=== PATIENT | female | born 1965 | race Caucasian/White ===

== ENCOUNTER 2022-06-06 08:06 | Outpatient (CLI) | payer OTHER, SELFPAY ==
--- OUTSIDE RECORDS SUMMARY | 2022-05-05 09:07 | XMS_ITS | Continuity of Care Document ---
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 Cough Active History of tubal ligation July 05, 2012 Active H/O bilateral oophorectomy July 05, 2012 Active History of herniorrhaphy Active Medications Medication Status Dose Units Route Directions Qty Days Start End Ins tructions Date Date Black Cohash Active Daily Multivitamins Active 1 TAB PO Daily 100 (Multivitamin /Minerals) TAB Ciprofloxacin Disconti 1 TABLET PO Twice A Day 8 March Hcl nued r 2018 3:30pm 8:12am Ciprofloxacin Disconti 1 TABLET PO Twice A Day 6 e Decemb Hcl nued r 3rd, er 2018 6th, 2:43pm 2018 3:30pm Ciprofloxacin Disconti 500 MG PO Twice A Day 14 mbe J aishwarya Hcl (Cipro) nued r 500 Mg TAB 2017, 12:53pm 2018 9:11am Ciprofloxacin Disconti 500 MG PO Twice A Day 14 D ecemb Hcl nued r 22, er 2015 8th, 10:04am 2015 10:12a m Diphtheria/Te Disconti 0.5 ML IM Once June tanus/Acell nued , , Pertussis 2014 2014 (Adacel) 0.5 11:23am 11:56a Ml INJ m Fluconazole Disconti 150 MG PO Once 1 Decembe Decemb (Diflucan) nued r , er 150 Mg TAB 2015, 10:27am 2016 11:00a m Omeprazole Disconti 20 MG PO Daily Mayuar nued , y 2017, 8:32am 2018 9:22am Omeprazole Disconti 20 MG PO Daily 90 May nued r , , 2016 2017 11:18am 8:32am Omeprazole Disconti 20 MG PO Daily 90 April nued , er 2016, 11:51am 2016 11:18a m Omeprazole Disconti 20 MG PO Daily 90 April nued r , , 2015 2016 10:25am 11:51a m Omeprazole Disconti 20 MG PO Daily June nued , er 2016 , 10:24am 2015 10:25a m Omeprazole Disconti 20 MG PO Daily March Pt wi ll be nued , , due for 2015 2015 physical in 7:58am 10:24a [place] m Omeprazole Disconti 20 MG PO Daily March nued y 2015 12:52pm 7:58am Omeprazole Disconti 20 MG PO Daily ua nued r , ry 2014, 10:15am 2015 12:52p m Omeprazole Disconti 20 MG PO Daily August nued , er 2014, 10:52am 2014 10:15a m Omeprazole Disconti 20 MG PO Daily nued er r , , 2014 2014 10:25am 10:52a m Omeprazole Disconti 20 MG PO Daily June nued , noa 2014, 11:44am 2014 10:25a m Phenazopyridi Disconti 200 MG PO Three Times 10 Decembe J aishwarya ne Hcl nued A Day as r , y (Pyridium) needed 2018 , 200 Mg TAB 12:53pm 2018 9:22am Phenazopyridi Disconti 100 MG PO Three Times 10 Novembe D ecemb ne Hcl nued A Day as r 5th, er (Pyridium) needed 2017, 100 Mg TAB 2:53pm 2017 12:26p m Sulfamethoxaz Disconti 1 TAB PO Twice A Day 6 3 Novembe D ecemb ole-Trimethop nued r 5th, er rim (Bactrim 2017, Ds) 800 2:53pm 2018 Mg/160 Mg TAB 12:26p m Valacyclovir Disconti 500 MG PO As Needed Decemb Hcl (Valtrex) nued er 500 Mg TAB 2017 12:26p m Varenicline Disconti 1 MG PO Twice A Day 05 April Augus t (Chantix nued , , Continuing 2006 2011 Pack) 1 Mg 10:45am 10:54a JORGE m Varenicline Disconti 1 MG PO Twice A Day February (Chantix nued , 25th, Continuing 2006 2006 Pack) 1 Mg 1:14pm 1:20pm JORGE Varenicline Disconti 0.5 - MG PO As Directed January TAKE (Chantix nued 1 , , ACCORDING T O Starter Pack) 2006 2006 PACKAG E 0.5 Mg/1 Mg 9:28am 11:39a DIRECT IONS TAB m Venlafaxine Disconti 37.5 MG PO Daily November Ple ase schedule appointment before additional refills are Hcl (Effexor nued , , authori zed. Xr) 37.5 Mg 2019 2020 CAPCR 2:24pm 8:12am Venlafaxine Disconti 37.5 MG PO Daily August Du e for Hcl (Effexor nued , y annual exam Xr) 37.5 Mg 2018, in Novua ry CAPCR 8:26am 2019 2:24pm Venlafaxine Disconti 37.5 MG PO Daily Novemberobe Hcl (Effexor nued , r Xr) 37.5 Mg 2018, CAPCR 11:222018 8:26am Venlafaxine Disconti 37.5 MG PO Daily 90 mbr Hcl (Effexor nued r , y Xr) 37.5 Mg 2016, CAPCR 11:182018 11:22a m Venlafaxine Disconti 37.5 MG PO Daily 90 Februar Decemb Hcl (Effexor nued y 27th, er Xr) 37.5 Mg 2016, CAPCR 10:20am 2016 11:18a m Venlafaxine Disconti 37.5 MG PO Daily 90 Decembe Februa Hcl (Effexor nued r 8th, ry Xr) 37.5 Mg 2015, CAPCR 10:25am 2016 10:20a m Venlafaxine Disconti 37.5 MG PO Daily 90 Novembe Decemb Hcl (Effexor nued r 28th, er Xr) 37.5 Mg 2016 06, CAPCR 4:17pm 2015 10:25a m Venlafaxine Disconti 37.5 MG PO Daily 90 Novembe Novemb Hcl (Effexor nued r 23, er Xr) 37.5 Mg 2014, CAPCR 10:16am 2015 4:17pm Venlafaxine Disconti 37.5 MG PO Daily 90 Novembe Novemb Hcl (Effexor nued r 18, er Xr) 37.5 Mg 2014, CAPCR 2:36pm 2014 10:16a m Venlafaxine Disconti 37.5 MG PO Daily 90 June Novemb Hcl (Effexor nued , er Xr) 37.5 Mg 2014, CAPCR 11:44am 2014 2:36pm Immunizations Immunization Event Date Not Given Dose Director Of Home Economics Lot [place] Reason Number Number Informatio n Statement (VIS) Deta il Influenza September [id number] Tdap June 28 SANOFI [id number] (adolescent/adul 2014 t) Advance Directives Advance Directive Response Recorded Date/Time Does Pt have Health Care No July 03 1:42pm Directive? Has patient completed a No April 01, 2021 8 :38am Health Care Directive? Insurance Providers Guarantor Brit Meyer Address [address] [facility] [address] Contact Info. Home Phone: Payer Policy Id Coverage Id Subscriber's Subscriber Effective Expi ration Name Id Date Date [place] [id number] Jimbo Meyer [facility] Plan of Treatment Future Tests Future scheduled test information is unavailable Pending Tests Pending diagnostic test information is unavailable Future Visits Future appointment information is unavailable Referrals to Other Providers Referral information is unavailable Future Procedures Procedure Name Scheduled Date JACK Bilat Mammo Scrn Future Medications Future medication information is unavailable Patient Instructions Patient instructions are unavailable
--- NOTE | 2022-06-06 08:15 | CRLHL7_ITS ---
For Patients: As a result of the Century Cures Act, medical imaging exams and procedure reports are released immediately into your electronic medical record. You may view this report before your referring provider. If you have questions, please contact your health care provider. BILATERAL MAMMOGRAM WITH COMPUTER-AIDED DETECTION AND TOMOSYNTHESIS TECHNIQUE: CC and MLO views were obtained. These mammographic images have been obtained using full-field digital technique. These mammographic images were interpreted with the benefit of computer-aided detection. Breast Tomosynthesis was used in this interpretation. COMPARISON FILM: 10/16/20, 11/18/18, 11/03/16 FINDINGS: There are scattered areas of fibroglandular density IMPRESSION: There is no radiographic evidence for malignancy. ASSESSMENT: BI-RADS Category 1: Negative RECOMMENDATION: Routine screening mammogram in 1 year. A lay language report of this examination will be provided to the patient. Tiesha Boucher M.D. Diagnostic/Breast Radiologist [email or web address] ULISES/Dictated by: Tiesha Boucher MD @ 06/06/2022 4:39:00 PM (Electronically Signed)
== END 2022-06-06 08:07 | disposition home or self-care (01) ==
LOC: MAMMO 08:08
PROVIDERS: Visit Provider Physician Assistant
DX: Z12.31 Encounter for screening mammogram for malignant neoplasm of breast (principal)
CPT/HCPCS: 77063; 77067

== ENCOUNTER 2023-06-25 12:43 | Outpatient (CLI) | payer OTHER, SELFPAY ==
--- NOTE | 2023-06-25 13:00 | CRLHL7_ITS ---
For Patients: As a result of the Century Cures Act, medical imaging exams and procedure reports are released immediately into your electronic medical record. You may view this report before your referring provider. If you have questions, please contact your health care provider. BILATERAL SCREENING MAMMOGRAM WITH COMPUTER-AIDED DETECTION AND TOMOSYNTHESIS TECHNIQUE: CC and MLO views were obtained. These mammographic images have been obtained using full-field digital technique. These mammographic images were interpreted with the benefit of computer-aided detection. Breast Tomosynthesis was used in this interpretation. COMPARISON FILM: 06/06/22, 10/16/20, 11/18/18. FINDINGS: The breasts are heterogeneously dense, which may obscure small masses IMPRESSION: There is no radiographic evidence for malignancy. ASSESSMENT: BI-RADS Category 1: Negative RECOMMENDATION: Routine screening mammogram in 1 year. A lay language report of this examination will be provided to the patient. Alex Gamez M.D. Diagnostic Radiologist [email or web address] ULISES/Dictated by: Alex Gamez MD @ 06/26/2023 8:39:00 AM (Electronically Signed)
== END 2023-06-25 12:44 | disposition home or self-care (01) ==
PROVIDERS: Visit Provider Physician Assistant
DX: Z12.31 Encounter for screening mammogram for malignant neoplasm of breast (principal); R92.2 Inconclusive mammogram
CPT/HCPCS: 77063; 77067

== ENCOUNTER 2023-11-05 11:16 | Emergency (ER) | payer OTHER, SELFPAY ==
[2023-11-05 11:20] VITALS: BP 188/118; PULSE 112; RESP 24; TEMP 36.5; O2SAT 98; BMI 29.8
--- NOTE | 2023-11-05 11:27 | CRLHL7_ITS ---
For Patients: As a result of the Century Cures Act, medical imaging exams and procedure reports are released immediately into your electronic medical record. You may view this report before your referring provider. If you have questions, please contact your health care provider. INDICATION: LEFT FLANK AND ABDOMINAL PAIN TECHNIQUE: CT abdomen and pelvis without contrast. COMPARISON: None. FINDINGS: Lower chest: Minimal linear atelectatic changes in the left lung base; otherwise, unremarkable. Liver: Mild hepatomegaly. No suspicious masses. Well-circumscribed low-density lesion in the right hepatic lobe near the falciform ligament, likely a benign cyst. Gallbladder and bile ducts: S/p cholecystectomy. No biliary dilatation. Pancreas: Unremarkable. No mass or inflammation. Spleen: Upper limits of normal in size. No masses. Adrenal glands: Normal in size. No nodules. Kidneys: Normal in size. No suspicious masses, stones, or hydronephrosis. GI tract: No evidence of bowel obstruction. The appendix is normal. Acute, uncomplicated sigmoid diverticulitis. No pericolonic abscess. Vasculature: Abdominal aorta is normal in caliber. Lymph nodes: No lymphadenopathy. Peritoneum: No free air or significant free fluid. Pelvis: The bladder is decompressed and not well evaluated on this exam. The uterus and bilateral adnexa are within normal limits.. Bones: No acute fracture or malalignment. Degenerative disc disease at L5-S1. No suspicious osseous lesions. IMPRESSION: Acute, uncomplicated sigmoid diverticulitis. Please note that all CT scans at this facility use dose modulation, iterative reconstruction, and/or weight-based dosing when appropriate to reduce radiation dose to as low as reasonably achievable. Dictated by Slava Abrams MD @ 11/05/2023 1:43:46 PM (Electronically Signed)
[2023-11-05 11:37] LABS: Appearance Urine Slightly Cloudy (Clear); Bilirubin Urine Negative (Negative); Blood Urine Trace-intact (Negative); Color Urine Light yellow (Yellow); Glucose Urine Negative (Negative); Ketones Urine Negative (Negative); Leukocyte Esterase Urine Negative (Negative); Nitrite Urine Negative (Negative); Protein Urine Negative (Negative); Urobilinogen Urine 0.2 (0.2-1.0)
--- NOTE | 2023-11-05 11:41 | ED.GENADULT ---
HPI - General Adult General Date Seen: 11/05/23 Chief complaint: Flank Pain Stated complaint: L side/lower abdominal/back pain Time Seen by Provider: 11/05/23 11:21 History of Present Illness HPI narrative: This is a very pleasant generally healthy 58-year-old female accompanied to the ER today by her for evaluation of left flank and abdominal pain. She has a past medical history of gallstones and previous cholecystectomy but is otherwise healthy. She is not currently on any medications. She has no allergies. She was awoken from sleep at about 2:00 a.m. this morning with left low back pain. It came intermittently since then. She it woke her up from some sleep sporadically but she was able to sleep between bouts of pain. It got worse this morning and is now radiating around to the front of her abdomen and down into her lower abdomen. She tried to go to work but was not able to stay there because of worsening bouts of severe pain. She was quite nauseous but did not vomit. Bowel movements have been normal, or if anything feeling a bit constipated this morning. No gross hematuria. She is feeling some urgency to void. For the past few days urination has been normal. No antecedent symptoms. No history of kidney stones. No known back injury. No pain or numbness or weakness down her leg. Related Data Previous Rx's Medication Instructions Recorded amoxicillin 875 mg-potassium 1 tab PO BID #14 tabs 11/05/23 clavulanate 125 mg tablet hydrocodone 5 mg-acetaminophen 325 1 tab PO Q4-6H PRN pain #10 tabs 11/05/23 mg tablet ondansetron HCl 4 mg tablet 4 mg PO Q8H PRN nausea and 11/05/23 vomiting #10 tabs Allergies Allergy/AdvReac Type Severity Reaction Status Date / Time No Known Drug Allergies Allergy Verified 11/05/23 11:24 PFSH PFS Social History Smoking Status: Former smoker How often do you have a drink containing alcohol: 4 or more times a week How many standard drinks containing alcohol do you have on a typical day: 1 or 2 How often do you have six or more drinks on one occasion: Never AUDIT-C Alcohol total score: 4 Non-prescribed substance use: denies use Exam Narrative: Exam Narrative: Constitutional: Appears well-developed and well-nourished. Alert. Uncomfortable but Conversant. HENT: Head: Atraumatic. Nose: Nose normal. Mouth/Throat: Oral mucosa is clear and moist. no trismus. Pharynx normal. Tonsils symmetric. No tonsillar enlargement, erythema, or exudate. Eyes: Conjunctivae normal. EOM normal. Pupils equal, round, and reactive to light. No scleral icterus. Neck: Normal range of motion. Neck supple. No tracheal deviation present. Cardiovascular: Normal rate, regular rhythm. No gallop. No friction rub. No murmur heard. Symmetric radial artery pulses Pulmonary/Chest: Effort normal. No stridor. No respiratory distress. No wheezes. No rales. No rhonchi . No tenderness. Abdominal: Soft. Bowel sounds normal. No distension. No mass. No tenderness. No rebound. No guarding. Left flank, left upper and left lower quadrant abdominal pain. No right-sided tenderness. Musculoskeletal: RUE: Normal range of motion. No tenderness. No deformity LUE: Normal range of motion. No tenderness. No deformity RLE: Normal range of motion. No edema. No tenderness. No deformity LLE: Normal range of motion. No edema. No tenderness. No deformity Neurological: Alert and oriented to person, place, and time. Normal strength. CN II-VII intact. No sensory deficit. GCS eye subscore is 4. GCS verbal subscore is 5. GCS motor subscore is 6. Normal coordination Skin: Skin is warm and dry. No rash noted. No pallor. Normal capillary refill. Psychiatric: Normal mood. Normal affect. Const: Vital Signs, click to edit/add: Vital Signs - 24 hr 11/05/23 11:20 11/05/23 11:45 11/05/23 12:29 Temperature 97.7 F Pulse Rate [Pulse Oximeter] 112 H 110 H Respiratory Rate 24 16 Blood Pressure [Ri ght Upper Arm] 188/118 H 155/112 H Pulse Oximetry 98 99 94 Oxygen Delivery Me thod Room Air Room Air 11/05/23 13:23 Temperature Pulse Rate [Pulse Oximeter] 110 H Respiratory Rate 16 Blood Pressure [Ri ght Upper Arm] 167/106 H Pulse Oximetry 99 Oxygen Delivery Me thod Room Air Course Course ED Course: Recheck-pain much improved after Toradol and fentanyl. Heart rate still about 110, sinus tach on the monitor. 1 L IV saline ordered. Recheck-heart rate down to 90 after fluids. Pain still well controlled. Discussed findings with the patient in detail and with her . She feels comfortable discharging to home. With tachycardia we will prescribe antibiotics although this does appear to be in acute uncomplicated sigmoid diverticulitis. Vital Signs Vital signs: Initial Vital Signs Temperature 97.7 F 11/05/23 11:20 Temperature Source Temporal Artery Scan 11/05/23 11:20 Pulse Rate 112 H 11/05/23 11:20 Respiratory Rate 24 11/05/23 11:20 Blood Pressure 188/118 H 11/05/23 11:20 Blood Pressure Mean 141 H 11/05/23 11:20 Blood Pressure Position Sitting 11/05/23 11:20 Pulse Oximetry 98 11/05/23 11:20 Oxygen Delivery Method Room Air 11/05/23 11:20 Vital Signs Temperature 97.7 F 11/05/23 11:20 Pulse Rate 112 H 11/05/23 11:20 Respiratory Rate 24 11/05/23 11:20 Blood Pressure 188/118 H 11/05/23 11:20 Pulse Oximetry 98 11/05/23 11:20 Oxygen Delivery Method Room Air 11/05/23 11:20 Temperature 97.7 F 11/05/23 11:20 Pulse Rate 110 H 11/05/23 13:23 Respiratory Rate 16 11/05/23 13:23 Blood Pressure 167/106 H 11/05/23 13:23 Pulse Oximetry 99 11/05/23 13:23 Oxygen Delivery Method Room Air 11/05/23 13:23 Medications Administered Medications: Generic Name Dose Route Start Last Admin Trade Name Freq PRN Reason Stop Dose Admin Fentanyl 50 mcg 11/05/23 11:26 11/05/23 11:44 Fentanyl 100 Mcg/2 Ml Inj IVP 50 mcg Q5M PRN Administration Discontinued Medications Generic Name Dose Route Start Last Admin Trade Name Freq PRN Reason Stop Dose Admin Sodium Chloride 1,000 mls @ 1,000 mls/hr 11/05/23 13:00 11/05/23 13:07 0.9 % Sodium Chloride 1000 Ml IV 11/05/23 13:59 1,000 mls/hr .Q1H RAMAN Administration Ketorolac Tromethamine 15 mg 11/05/23 11:26 11/05/23 11:45 Ketorolac 15 Mg/Ml Inj IVP 11/05/23 11:27 15 mg ONCE ONE Administration Ondansetron HCl 4 mg 11/05/23 11:26 11/05/23 11:42 Ondansetron 2 Mg/Ml Inj IVP 11/05/23 11:27 4 mg ONCE ONE Administration Medical Decision Making MDM Narrative Medical decision making narrative: Presented to the Emergency Department with left flank and left-sided abdominal pain. The differential diagnosis of abdominal pain includes: Kidney stone, colitis, diverticulitis,, Bowel Obstruction, Ulcer, Ischemia, Cholecystitis, Diverticulitis, Pancreatitis, UTI, kidney stone, Enteritis/Colitis, amongst many other etiologies. Laboratory testing does not reveal a cause for the patient's pain. UA is normal. White count minimally elevated 11.9. Noncontrast CT was obtained look for kidney stone which was initially highest on my differential. It does not show any sign of stone or hydronephrosis. It does show evidence for acute uncomplicated diverticulitis. Patient's pain was much improved after meds given here in the ER. She did have a persistent tachycardia which improved with IV fluids. At this point she is not septic or requiring admission for IV antibiotics. However given tachycardia above heart rate of 90, does not meet all of the low risk criteria for treatment of diverticulitis without antibiotics. Therefore we will start her on Augmentin. Prescriptions for Maxbass and Zofran provided for symptomatic relief. She will stick to a clear liquid diet for the next couple of days. Discussed the expected course of diverticulitis and indications that would necessitate immediate return to the ER. Also discussed the need to follow in the clinic or ER if she is not improving. Questions answered. Opiate precautions reviewed. Lab Data Labs: Lab Results 11/05/23 11/05/23 Range/Units 11:20 11:40 WBC 11.87 H (4.50-11.00) K/uL RBC 4.46 (4.00-5.20) m/uL Hgb 14.9 (12.0-16.0) gm/dL Hct 42.0 (33.0-51.0) % MCV 94 (80-100) fL MCH 33 (26-34) pg MCHC 36 (32-36) gm/dL RDW Coeff of Reginaldo 12.3 (11.5-15.5) % Plt Count 262 (140-440) K/uL Neut % (Auto) 82.6 H (42.0-72.0) % Lymph % (Auto) 10.9 L (20-44) % Boone % (Auto) 5.5 (0.0-11.0) % Eos % (Auto) 0.1 (0.0-7.0) % Baso % (Auto) 0.1 (0.0-3.0) % Neut # (Auto) 9.80 H (1.7-7.0) K/uL Lymph # (Auto) 1.30 (0.90-2.90) K/uL Boone # (Auto) 0.70 (0.00-0.90) K/UL Eos # (Auto) 0.00 (0.00-0.50) K/uL Baso # (Auto) 0.00 (0.00-0.30) K/uL Abs Immat Gran (auto) 0.10 (0.00-0.30) K/uL Imm/Tot Granulo (auto) 0.8 % Sodium 135 (135-149) mmol/L Potassium 3.8 (3.6-5.1) mmol/L Chloride 101 (96-114) mmol/L Carbon Dioxide 22 (20-32) mmol/L Anion Gap 12 (7-15) mEq/L BUN 12 (7-30) mg/dL Creatinine 0.7 (0.5-1.5) mg/dL Estimated Creat Clear 84.15 Estimated GFR 100 ml/min Glucose 110 (60-115) mg/dL Calcium 11.1 H (8.4-10.6) mg/dL Urine Color Light yellow (Yellow) Urine Appearance Slightly Cloudy A (Clear) Urine pH 7.0 (5.0-8.5) Ur Specific Matthews 1.010 (1.000-1.030) Urine Protein Negative (Negative) Urine Glucose (UA) Negative (Negative) Urine Ketones Negative (Negative) Urine Blood Trace-intact A (Negative) Urine Nitrite Negative (Negative) Urine Bilirubin Negative (Negative) Urine Urobilinogen 0.2 (0.2-1.0) Ur Leukocyte Esterase Negative (Negative) Urine RBC 0-2 (0-2) Urine WBC 0-2 (0-5) Ur Squamous Epith Cells Moderate A (None-Few) Urine Bacteria Few A (None) Imaging Data CT scan - abdomen: Attestation: I have reviewed the pertinent imaging results. My impression: I do not see any hydronephrosis or kidney stone. Possible diverticulitis. No definite perf. Radiologist's impression: IMPRESSION: Acute, uncomplicated sigmoid diverticulitis. Discharge Plan Discharge Clinical Impression: Diverticulitis Patient Disposition: Home, Self-Care Condition: Stable Instructions: Diverticulitis (DC), Diverticulitis Diet (ED) Additional Instructions: As we discussed, please return to the ER right away if you get worse, for instance if you have high fever, bloody stools, worsening pain, uncontrolled nausea or vomiting, weakness, or if you have any other problems. We expect you should be better within the next 2-4 days. If you are not completely improved with after 4 days, please recheck with the ER with your regular doctor. Use caution with prescription pain killer (Maxbass) because it can cause drowsiness, dizziness, and can be addictive. Prescriptions: New amoxicillin-pot clavulanate 875-125 mg tablet 1 tab PO BID Qty: 14 0RF ondansetron HCl 4 mg tablet 4 mg PO Q8H PRN (Reason: nausea and vomiting) Qty: 10 0RF hydrocodone-acetaminophen 5-325 mg tablet 1 tab PO Q4-6H PRN (Reason: pain) Qty: 10 0RF Follow Up/Referrals: Provider,Not a Local [Primary Care Provider] - Stand Alone Forms: Stream5 Info Instructions
[2023-11-05] MEDS: ONDANSETRON 2 MG/ML inj 4 MG IVP (11:42)
[2023-11-05] MEDS: fentaNYL 100 MCG/2 ML inj 50 MCG IVP (11:44)
[2023-11-05 11:45] VITALS: O2SAT 99
[2023-11-05] MEDS: KETOROLAC 15 MG/ML inj IVP (11:45)
[2023-11-05 12:09] LABS: Chloride* 101 mmol/L (96-114); Sodium* 135 mmol/L (135-149)
[2023-11-05 12:10] LABS: Potassium* 3.8 mmol/L (3.6-5.1)
[2023-11-05 12:12] LABS: Creatinine* 0.7 mg/dL (0.5-1.5); Est. Creatinine Clearance* 84.15; Estimated Glomerular Filt Rate 100 ml/min
[2023-11-05 12:13] LABS: Anion Gap 12 mEq/L (7-15); Blood Urea Nitrogen* 12 mg/dL (7-30); Calcium* 11.1 mg/dL (8.4-10.6); Carbon Dioxide* 22 mmol/L (20-32); Glucose* 110 mg/dL (60-115)
[2023-11-05 12:16] LABS: Bacteria Urine Few; RBC Urine 0-2 (0-2); Squamous Epithelial Cell Urine Moderate (None-Few); WBC Urine 0-2 (0-5)
[2023-11-05 12:26] LABS: Basophils Percent Auto 0.1 % (0.0-3.0); Eosinophils Percent Auto 0.1 % (0.0-7.0); Hemoglobin* 14.9 gm/dL (12.0-16.0); Immature Granulocytes Pct Auto 0.8 %; Lymphocytes Percent Auto 10.9 % (20-44); Mean Corpuscular HGB Conc 36 gm/dL (32-36); Mean Corpuscular Hemoglobin 33 pg (26-34); Mean Corpuscular Volume 94 fL (80-100); Monocytes Percent Auto 5.5 % (0.0-11.0); Neutrophils Percent Auto 82.6 % (42.0-72.0); Platelet Count* 262 K/uL (140-440); RDW Coefficient of Variation % 12.3 % (11.5-15.5); Red Blood Count 4.46 m/uL (4.00-5.20); White Blood Count* 11.87 K/uL (4.50-11.00)
[2023-11-05 12:29] VITALS: BP 155/112; PULSE 110; RESP 16; O2SAT 94
[2023-11-05 12:35] LABS: Slide Review Reflex No
[2023-11-05] MEDS: 0.9 % SODIUM CHLORIDE 1000 ml 1,000 ML IV (13:07)
[2023-11-05 13:23] VITALS: BP 167/106; PULSE 110; RESP 16; O2SAT 99
== END 2023-11-05 14:29 | disposition home or self-care (01) ==
PROVIDERS: Emergency Provider Emergency Medicine
DX: K57.92 Diverticulitis of intestine, part unspecified, without perforation or abscess without bleeding (principal)
CPT/HCPCS: 36415; 74176; 80048; 81001; 85025; 87086; 94761; 96374; 96375; 99284; J1885; J2405; J3010; J7030

== ENCOUNTER 2023-12-07 07:41 | Outpatient (CLI) | payer OTHER, SELFPAY ==
--- OUTSIDE RECORDS SUMMARY | 2023-12-07 07:44 | XMS_ITS | Clinical Summary ---
Author Name Unknown Organization [facility] Address [address] [place] [address] Care Team Providers Care Farm Product Purchaser Name Role Phone [facility] Primary Care Provider [phone]- [phone] Allergies No known active allergies Medications Medication Sig Dispensed Refills Start Date End Date Status OMEPRAZOLE PO Take 20 mg by mouth every morning 0 Active venlafaxine (EFFEXOR-XR) 37.5 MG 24 hr capsule Take 37.5 mg by mouth daily 0 Active multivitamin, therapeutic with minerals (THERA-VIT-M) TABS tablet Take 1 tablet by mouth daily 0 Active BLACK COHOSH PO Take 1 tablet by mouth daily 0 Active Active Problems Problem Noted Date Diagnosed Date Acute cholecystitis 03/08/2018 Social History Tobacco Use Types Packs/Day Years Used Date Smoking Tobacco: Former Smokeless Tobacco: Never Tobacco Cessation:Counseling Given: Yes Alcohol Use Standard Drinks/Week Comments Yes 7 (1 standard drink = 0.6 oz pur e alcohol) glass of wine every day Sex and Gender Information Value Date Recorded Sex Assigned at Not on file Gender Identity Not on file Sexual Orientation Not on file Last Filed Vital Signs Vital Sign Reading Time Taken Comments Blood Pressure 132/80 03/22/2018 9:56 AM CDT Pulse 90 03/22/2018 9:56 AM CDT Temperature 37.6 ??C (99.6 ??F) 03/08/2018 3:14 PM CD T Respiratory Rate 16 03/22/2018 9:56 AM CDT Oxygen Saturation 98% 03/22/2018 9:56 AM CDT Inhaled Oxygen Concentration - - Weight 95.3 kg (210 lb) 03/22/2018 9:56 AM CDT p t reported Height 170.2 cm (5' 7) 03/22/2018 9:56 AM CDT p t reported Body Mass Index 32.89 03/22/2018 9:56 AM CDT Plan of Treatment Not on file Advance Directives For more information, please contact: [phone] Latest Code Status on File Code Status Date Activated Date Inactivated Comments Full Code 03/08/2018 6:55 AM 03/08/2018 5:58 PM Care Teams Farm Product Purchaser Relationship Specialty Start Date End Date [facility] [address] [address] PCP - General 03/08/18
--- OUTSIDE RECORDS SUMMARY | 2023-12-07 07:44 | XMS_ITS | Referral Summary ---
Author Name Unknown Organization [facility] Address [address] [place] [id number] Care Team Providers Care Insurance Defense Attorney Name Role Phone [facility] Primary Care Provider +1- [phone] Allergies No known active allergies Medications Medication [...] Advance Directives For more information, please contact: [phone] Latest Code Status on File Code Status Date Activated Date Inactivated Comments Full Code 03/08/2018 6:55 AM 03/08/2018 5:58 PM Care Teams Insurance Defense Attorney Relationship Specialty Start Date End Date [facility] [address] [address] PCP - General 03/08/18
== END 2023-12-07 07:42 | disposition home or self-care (01) ==
PROVIDERS: Visit Provider Family Medicine
DX: I10 Essential (primary) hypertension (principal); E83.52 Hypercalcemia; Z11.59 Encounter for screening for other viral diseases
CPT/HCPCS: 80053; 80061; 82043; 82570; 86803

== ENCOUNTER 2023-12-17 08:40 | Outpatient (CLI) | payer OTHER, SELFPAY ==
--- OUTSIDE RECORDS SUMMARY | 2023-12-17 08:42 | XMS_ITS | Referral Summary ---
Author Name Unknown Organization [facility] Address [address] [place] [address] Care Team Providers Care Inspector Returned Materials Name Role Phone [facility] Primary Care Provider +1- [phone] Allergies No known active allergies Medications Medication [...] Advance Directives For more information, please contact: [phone] Latest Code Status on File Code Status Date Activated Date Inactivated Comments Full Code 03/08/2018 6:55 AM 03/08/2018 5:58 PM Care Teams Inspector Returned Materials Relationship Specialty Start Date End Date [facility] [address] [address] PCP - General 03/08/18
--- OUTSIDE RECORDS SUMMARY | 2023-12-17 08:42 | XMS_ITS | Clinical Summary ---
Author Name Unknown Organization [facility] Address [address] [place] [address] Care Team Providers Care Cover Seamer Name Role Phone [facility] Primary Care Provider +1- [phone] Allergies No known active allergies Medications Medication [...] Advance Directives For more information, please contact: [phone] Latest Code Status on File Code Status Date Activated Date Inactivated Comments Full Code 03/08/2018 6:55 AM 03/08/2018 5:58 PM Care Teams Cover Seamer Relationship Specialty Start Date End Date [facility] [address] [address] PCP - General 03/08/18
== END 2023-12-17 08:41 | disposition home or self-care (01) ==
LOC: RAD 08:41
PROVIDERS: PCP Family Medicine; Visit Provider Family Medicine
DX: I10 Essential (primary) hypertension (principal); I34.0 Nonrheumatic mitral (valve) insufficiency; R01.1 Cardiac murmur, unspecified
CPT/HCPCS: 93306

== ENCOUNTER 2024-11-21 14:52 | Emergency (ER) | payer OTHER, SELFPAY ==
[2024-11-21 14:56] VITALS: BP 192/96; PULSE 92; RESP 18; TEMP 36.1; O2SAT 98; BMI 29.0
--- NOTE | 2024-11-21 15:36 | ED_ITS ---
HPI - Abdominal Pain General Chief Complaint: Abdominal Pain Stated Complaint: Abdominal pain Time Seen by Provider: 11/21/24 14:52 History of Present Illness HPI narrative: This 59-year-old female comes in with her because of left lower quadrant abdominal pain that began 2 or 3 days ago. She has a history of diverticulitis that occurred about a year ago. She states that the symptoms feel similar. She did note some blood in the toilet and also has had some dark colored stool. She does not report any lightheadedness, shortness of breath, or fever. She states that the pain seems worse when she is in a sitting position. Related Data Previous Rx's ?Medication ?Instructions ?Recorded propranolol 10 mg tablet 10 mg PO TID PRN anxiety #30 tabs 12/07/23 losartan 25 mg tablet 25 mg PO QDAY #90 tabs 03/28/24 trazodone 50 mg tablet 50 mg PO QDAY #90 tabs 05/11/24 amoxicillin 875 mg-potassium 1 tab PO BID #14 tabs 11/21/24 clavulanate 125 mg tablet hydrocodone 5 mg-acetaminophen 325 1 tab PO Q4-6H PRN pain #15 tabs 11/21/24 mg tablet pantoprazole 20 mg tablet,delayed 20 mg PO DAILY #30 tabs 11/21/24 release (Protonix) Allergies Allergy/AdvReac Type Severity Reaction Status Date / Time No Known Drug Allergies Allergy Verified 01/07/24 10:55 Review of Systems Status of ROS Reports: 10 or more systems reviewed and unremarkable except as noted in History and below Narrative Constitutional: No fevers, no weight gain or loss. Eyes: No discharge. No vision changes. HENT: No congestion, no sore throat, no ear pain. Cardiovascular: No chest pain, no palpitations. Respiratory: No shortness of breath, no wheezes, no cough. Gastrointestinal: No vomiting, no diarrhea. Abdominal pain in the left lower quadrant. Genitourinary: No dysuria, no hematuria. Musculoskeletal: Normal range of motion. Skin: No rashes, no pruritis. Neurological: No dizziness, weakness, sensory change, speech change. Endo/Heme/Allergies: No bruising or bleeding. No polydipsia. Pysch: no suicidality, no anxiety, no insomnia. All other systems reviewed and are negative. PFSH PFSH Medical History (Updated 11/21/24 @ 15:40 by Fransisco Simon MD) Diverticulosis ?K57.90 - Diverticulosis of intestine, part unspecified, without perforation or abscess without bleeding (ICD-10) Surgical History (Updated 12/07/23 @ 13:09 by Jessica Milton MD) H/O lumpectomy ?Z98.890 - Other specified postprocedural states (ICD-10) History of tubal ligation (07/05/12) ?Z98.51 - Tubal ligation status (ICD-10) History of hernia repair ?Z98.890 - Other specified postprocedural states (ICD-10) ?Z87.19 - Personal history of other diseases of the digestive system (ICD-10) History of bilateral oophorectomy (07/05/12) ?Z90.722 - Acquired absence of ovaries, bilateral (ICD-10) Family History (Updated 12/07/23 @ 13:08 by Jessica Milton MD) Father High blood pressure Parkinson disease Mother Lung cancer Sister Breast cancer Other COPD (chronic obstructive pulmonary disease) Social History Smoking Status: Former smoker How often do you have a drink containing alcohol: 4 or more times a week How many standard drinks containing alcohol do you have on a typical day: 1 or 2 How often do you have six or more drinks on one occasion: Never AUDIT-C Alcohol total score: 4 Non-prescribed substance use: denies use Exam Narrative: Exam Narrative: Constitutional: Well-developed, well-nourished, no acute distress. HEENT: Normocephalic, atraumatic. Neck: Normal range of motion. Nontender. Supple. Heart: Regular. No murmurs. Normal rate. Intact distal pulses. Lungs: Clear to auscultation. No chest discomfort. No wheezes, rhonchi, or rales. Abdomen: Decreased bowel sounds. Pain in the left lower quadrant with some mild rebound tenderness. Genitalia: Deferred. Back: No midline tenderness. Normal range of motion. Extremities: Normal range of motion. No injury. Skin: Intact. No rash. Warm. No erythema or pallor. Neurologic: No altered sensation. No weakness. Alert and oriented. Psychiatric: No suicidality. No anxiety or depression. No insomnia. Nursing notes and vitals signs are reviewed. Const: Vital Signs, click to edit/add: Vital Signs - 24 hr 11/21/24 14:56 Temperature 96.9 F L Pulse Rate [Pulse Oximeter] 92 Respiratory Rate 18 Blood Pressure [Le ft Upper Arm] 192/96 H Pulse Oximetry 98 Oxygen Delivery Me thod Room Air Course Vital Signs Vital signs: Initial Vital Signs Temperature 96.9 F L 11/21/24 14:56 Temperature Source Temporal Artery Scan 11/21/24 14:56 Pulse Rate 92 11/21/24 14:56 Pulse Rhythm Regular 11/21/24 14:56 Respiratory Rate 18 11/21/24 14:56 Blood Pressure 192/96 H 11/21/24 14:56 Blood Pressure Mean 128 H 11/21/24 14:56 Blood Pressure Position Sitting 11/21/24 14:56 Pulse Oximetry 98 11/21/24 14:56 Oxygen Delivery Method Room Air 11/21/24 14:56 Vital Signs Temperature 96.9 F L 11/21/24 14:56 Pulse Rate 92 11/21/24 14:56 Respiratory Rate 18 11/21/24 14:56 Blood Pressure 192/96 H 11/21/24 14:56 Pulse Oximetry 98 11/21/24 14:56 Oxygen Delivery Method Room Air 11/21/24 14:56 Temperature 96.9 F L 11/21/24 14:56 Pulse Rate 92 11/21/24 14:56 Respiratory Rate 18 11/21/24 14:56 Blood Pressure 192/96 H 11/21/24 14:56 Pulse Oximetry 98 11/21/24 14:56 Oxygen Delivery Method Room Air 11/21/24 14:56 MDM - Abdominal Pain MDM Narrative Medical decision making narrative: This patient comes in reporting abdominal pain symptoms that are suspicious for recurrence of diverticulitis. She also was noted some blood in the stool. She does not report any lightheadedness or shortness of breath. She arrives with normal vital signs. I did discuss diagnostic tools including imaging and labs. In a process of shared decision-making she declined these for now. She is not showing signs of complication given her exam and vital signs. I did describe signs and symptoms that would indicate a need for return re-evaluation. She received prescriptions for Augmentin, Fisher, and Protonix. She is scheduled to have a colonoscopy in the near future. Discharge Plan Discharge Clinical Impression: Diverticulitis Patient Disposition: Home, Self-Care Condition: Unchanged Prescriptions: New hydrocodone-acetaminophen 5-325 mg tablet 1 tab PO Q4-6H PRN (Reason: pain) Qty: 15 0RF pantoprazole [Protonix] 20 mg tablet,delayed release (DR/EC) 20 mg PO DAILY Qty: 30 2RF amoxicillin-pot clavulanate 875-125 mg tablet 1 tab PO BID Qty: 14 0RF No Action propranolol 10 mg tablet 10 mg PO TID PRN (Reason: anxiety) Qty: 30 12RF losartan 25 mg tablet 25 mg PO QDAY Qty: 90 3RF trazodone 50 mg tablet 50 mg PO QDAY Qty: 90 10RF Follow Up/Referrals: Jessica Milton MD [Primary Care Provider] - Stand Alone Forms: [employer]th Info Instructions
--- OUTSIDE RECORDS SUMMARY | 2024-11-21 15:50 | XMS_ITS | Clinical Summary ---
Author Organization [facility] Address [address] [place] [address] Care Team Providers Care Polishing Pad Mounter Name Role Phone [facility] Primary Care Provider +1- [phone] Allergies No known active allergies Medications OMEPRAZOLE PO Take 20 mg by mouth every morning Active venlafaxine (EFFEXOR-XR) 37.5 MG 24 hr capsule Take 37.5 mg by mouth daily Active multivitamin, therapeutic with minerals (THERA-VIT-M) TABS tablet Take 1 tablet by mouth daily Active BLACK COHOSH PO Take 1 tablet by mouth daily Active Active Problems Problem Noted Date Diagnosed Date Acute cholecystitis 03/08/2018 Social History Tobacco Use Types Packs/Day Years Used Date Smoking Tobacco: Former Smokeless Tobacco: Never Tobacco Cessation:Counseling Given: Yes Alcohol Use Standard Drinks/Week Comments Yes 7 (1 standard drink = 0.6 oz pur e alcohol) glass of wine every day Comments No Sex and Gender Information Value Date Recorded Sex Assigned at Not on file 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 Gender Identity Not on file Sexual Orientation Not on file Last Filed Vital Signs Vital Sign Reading Time Taken Comments Blood Pressure 132/80 03/22/2018 9:56 AM CDT Pulse 90 03/22/2018 9:56 AM CDT Temperature 37.6 C (99.6 F) 03/08/2018 3:14 PM CDT Respiratory Rate 16 03/22/2018 9:56 AM CDT Oxygen Saturation 98% 03/22/2018 9:56 AM CDT Inhaled Oxygen Concentration - - Weight 95.3 kg (210 lb) 03/22/2018 9:56 AM CDT p t reported Height 170.2 cm (5' 7) 03/22/2018 9:56 AM CDT p t reported Body Mass Index 32.89 03/22/2018 9:56 AM CDT Plan of Treatment Not on file Insurance [employer] Advance Directives For more information, please contact: [phone] * Full Code (Latest Code Status on File) Date Activated Date Inactivated Comments 03/08/2018 6:55 AM 03/08/2018 5:58 PM Care Teams Polishing Pad Mounter Relationship Specialty Start Date End Date [facility] [address] [address] PCP - General 03/08/18
--- OUTSIDE RECORDS SUMMARY | 2024-11-21 15:51 | XMS_ITS | Referral Summary ---
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
== END 2024-11-21 16:13 | disposition home or self-care (01) ==
PROVIDERS: Emergency Provider Emergency Medicine Emergency Medical Services; PCP Family Medicine
DX: K57.32 Diverticulitis of large intestine without perforation or abscess without bleeding (principal)
CPT/HCPCS: 99283; 99284

== ENCOUNTER 2024-12-28 13:35 | Outpatient (CLI) | payer OTHER, SELFPAY | END 2024-12-28 13:36 | disposition home or self-care (01) | LOC: NFLDREF 01-02 15:10 | PROVIDERS: PCP Family Medicine; Referring Provider Family Medicine; Visit Provider Physician Assistant Medical | DX: N30.00 Acute cystitis without hematuria (principal) | CPT/HCPCS: 87086 ==

== ENCOUNTER 2025-01-19 12:56 | Outpatient (CLI) | payer OTHER, SELFPAY | END 2025-01-19 12:57 | disposition home or self-care (01) | PROVIDERS: PCP Family Medicine; Visit Provider Family Medicine | DX: E83.52 Hypercalcemia (principal); I10 Essential (primary) hypertension; Z13.220 Encounter for screening for lipoid disorders | CPT/HCPCS: 80053; 80061; 82043; 82570 ==

== ENCOUNTER 2025-04-17 13:25 | Outpatient (CLI) | payer OTHER, SELFPAY ==
--- NOTE | 2025-04-17 13:40 | CRLHL7_ITS ---
For Patients: As a result of the Century Cures Act, medical imaging exams and procedure reports are released immediately into your electronic medical record. You may view this report before your referring provider. If you have questions, please contact your health care provider. INDICATION: BILATERAL SCREENING MAMMOGRAMN, ASYMPTOMATIC 59 Y/O FEMALE COMPARISON: 06/25/2023, 06/06/2022, 10/16/2020 TECHNIQUE: Digital mammogram in CC and MLO projections including computer-aided detection (CAD) and tomosynthesis. BREAST COMPOSITION: The breasts are heterogeneously dense, which may obscure small masses. FINDINGS: No suspicious findings. ASSESSMENT: BI-RADS 2 Benign RECOMMENDATION: Annual screening mammogram. A lay language report of this examination will be provided to the patient. Dictated by: Alex Gamez MD @ 04/20/2025 10:48:27 (Electronically Signed)
== END 2025-04-17 13:26 | disposition home or self-care (01) ==
LOC: MAMMO 13:25
PROVIDERS: PCP Family Medicine; Visit Provider Family Medicine
DX: Z12.31 Encounter for screening mammogram for malignant neoplasm of breast (principal); R92.333 Mammographic heterogeneous density, bilateral breasts
CPT/HCPCS: 77063; 77067

== ENCOUNTER 2025-07-09 09:32 | Outpatient (CLI) | payer OTHER, SELFPAY | END 2025-07-09 09:33 | disposition home or self-care (01) | LOC: NFLDREF 07-11 08:09 | PROVIDERS: PCP Family Medicine; Referring Provider Family Medicine; Visit Provider Nurse Practitioner Family | DX: R30.0 Dysuria (principal); N39.0 Urinary tract infection, site not specified | CPT/HCPCS: 87086 ==

== ENCOUNTER 2025-09-04 07:15 | Outpatient (CLI) | payer OTHER, SELFPAY ==
--- NOTE | 2025-09-04 08:35 | P.ANES_ITS ---
Anesthesia Charges Start Date/Time Anesthesia Start Date: 09/04/25 Anesthesia Start Time: 08:10 Stop Date/Time Anesthesia Stop Date: 09/04/25 Anesthesia Stop Time: 08:32 Coding CPT Codes CPT Codes: JOHANNE LWR INTST SCR COLSC - 76681 ([id number]) P2 - PATIENT W/MILD SYST DISEASE, QK - FILE MACHINE OPERATOR 2-4 CNCRNT ANES PROC, QX - STORE RECEIVING SPECIALIST SVC W/ MD MED DIRECTION
--- NOTE | 2025-09-04 08:35 | W.ANESCHARGE ---
Anesthesia Charges Start Date/Time Anesthesia Start Date: 09/04/25 Anesthesia Start Time: 08:10 Stop Date/Time Anesthesia Stop Date: 09/04/25 Anesthesia Stop Time: 08:32 Coding CPT Codes CPT Codes: JOHANNE LWR INTST SCR COLSC - 60264 ([id number]) P2 - PATIENT W/MILD SYST DISEASE, QK - CYBER SOFTWARE ENGINEER 2-4 CNCRNT ANES PROC, QX - HARDWARE DESIGNER SVC W/ MD MED DIRECTION
--- NOTE | 2025-09-04 09:41 | P.ANES_ITS ---
Anesthesia Charges Start Date/Time Anesthesia Start Date: 09/04/25 Anesthesia Start Time: 08:10 Stop Date/Time Anesthesia Stop Date: 09/04/25 Anesthesia Stop Time: 08:32 Coding CPT Codes CPT Codes: JOHANNE LWR INTST SCR COLSC - 37217 ([id number]) P2 - PATIENT W/MILD SYST DISEASE, QX - BURRER MARKER AXLE SVC W/ MD MED DIRECTION, QK - CHIEF NURSE ANESTHETIST 2-4 CNCRNT ANES PROC
--- NOTE | 2025-09-04 09:41 | W.ANESCHARGE ---
Anesthesia Charges Start Date/Time Anesthesia Start Date: 09/04/25 Anesthesia Start Time: 08:10 Stop Date/Time Anesthesia Stop Date: 09/04/25 Anesthesia Stop Time: 08:32 Coding CPT Codes CPT Codes: JOHANNE LWR INTST SCR COLSC - 33997 ([id number]) P2 - PATIENT W/MILD SYST DISEASE, QX - GRINDING MILL OPERATOR SVC W/ MD MED DIRECTION, QK - PRINTING SUPERVISOR 2-4 CNCRNT ANES PROC
== END 2025-09-04 07:16 | disposition home or self-care (01) ==
LOC: OP CLINIC 07:15
PROVIDERS: PCP Family Medicine; Visit Provider Internal Medicine
DX: Z12.11 Encounter for screening for malignant neoplasm of colon (principal); K57.30 Diverticulosis of large intestine without perforation or abscess without bleeding
CPT/HCPCS: 00812; 45378; J2704